=== PATIENT | male | born 1945 | race Caucasian/White ===

== ENCOUNTER 2018-06-25 20:01 | Observation (INO) | payer MEDICARE ==
[~2018-06-25] VITALS: Ht 175.3 cm; Wt 83.2 kg
[~2018-06-25 20:01] MED LIST: CYCL10 PO; HYDACE5 PO; Hydrocodone-Ap1 EA23 PO; LOSHYD PO
[2018-06-25] MEDS ORDERED: SYNTHROID112 MCG PO (21:27)
[2018-06-25] MEDS ORDERED: LOSARTAN-HCTZ1 EACH PO (21:27)
[2018-06-25] MEDS ORDERED: ACYC400 PO (21:27)
[2018-06-25] MEDS ORDERED: ATOR10 PO (21:28)
[2018-06-26 01:02] LABS: BASOPHILS ABSOLUTE AUTO 0.05 K/mm3 (0.00-0.23); BASOPHILS PERCENT AUTO 0 % (0-2); EOSINOPHILS ABSOLUTE AUTO 0.08 K/mm3 (0.00-0.68); EOSINOPHILS PERCENT AUTO 1 % (0-6); Hemoglobin 13.1 g/dL (13.5-17.5); IMMATURE GRAN ABSOLUTE AUTO 0.19 K/mm3 (0.00-0.10); IMMATURE GRAN PERCENT AUTO 1 % (0-1); LYMPHOCYTES ABSOLUTE AUTO 1.28 K/mm3 (0.84-5.20); LYMPHOCYTES PERCENT AUTO 7 % (21-46); MONOCYTES ABSOLUTE AUTO 1.05 K/mm3 (0.16-1.47); MONOCYTES PERCENT AUTO 6 % (4-13); Mean Corpuscular HGB 30.5 pg (26.0-34.0); Mean Corpuscular HGB Conc 33.6 g/dL (31.5-36.5); Mean Corpuscular Volume 91 fL (80-100); Mean Platelet Volume 9.6 fL (9.1-12.4); NEUTROPHILS ABSOLUTE AUTO 15.05 K/mm3 (1.96-9.15); NEUTROPHILS PERCENT AUTO 85 % (41-73); Platelet Count 367 K/mm3 (150-400); RDW Coefficient Variation 12.8 % (11.7-14.2); RDW Standard Deviation 42.3 fL (35.1-46.3); Red Blood Cell Count 4.29 M/mm3 (4.30-5.90)
[2018-06-26 01:23] LABS: Alanine Aminotransfer (ALT/SGP 24 U/L (12-78); Albumin, Blood 3.4 g/dL (3.4-5.0); Albumin/Globulin Ratio 0.8 (0.8-1.8); Alk Phos 75 U/L (50-136); Anion Gap 8 mmol/L (6-16); Aspartate Aminotrans (AST/SGOT 18 U/L (12-37); Bilirubin, Total 0.3 mg/dL (0.1-1.0); Blood Urea Nitrogen 29 mg/dL (8-24); Bun/Creatinine Ratio 29.3 (12.0-20.0); CO2, Blood 27 mmol/L (21-32); Calcium, Blood 8.9 mg/dL (8.5-10.1); Chloride, Blood 100 mmol/L (98-108); Creatinine, Blood 0.99 mg/dL (0.60-1.20); Globulin, Blood 4.1 g/dL (2.2-4.0); Glomerular Filtration Rate >60 (60-); Glucose, Blood 167 mg/dL (70-99); Potassium, Blood 3.6 mmol/L (3.5-5.5); Sodium, Blood 135 mmol/L (136-145); Total Protein, Blood 7.5 g/dL (6.4-8.2); Troponin I <0.015 ng/mL (0.000-0.040)
[2018-06-26 05:08] LABS: Adenovirus Not Detected (NOT DETECT); Bordetella pertussis Not Detected (NOT DETECT); Chlamydophila pneumoniae Not Detected (NOT DETECT); Coronavirus 229E Not Detected (NOT DETECT); Coronavirus HKU1 Not Detected (NOT DETECT); Coronavirus NL63 Not Detected (NOT DETECT); Coronavirus OC43 Not Detected (NOT DETECT); Human Metapneumovirus Not Detected (NOT DETECT); Human Rhinovirus/Enterovirus Not Detected (NOT DETECT); Influenza A/2009-H1 Not Detected (NOT DETECT); Influenza A/H1 Not Detected (NOT DETECT); Influenza A/H3 Not Detected (NOT DETECT); Influenza B Not Detected (NOT DETECT); Mycoplasma pneumoniae Not Detected (NOT DETECT); Parainfluenza Virus 1 Not Detected (NOT DETECT); Parainfluenza Virus 2 Not Detected (NOT DETECT); Parainfluenza Virus 3 Not Detected (NOT DETECT); Parainfluenza Virus 4 Not Detected (NOT DETECT); Respiratory Syncytial Virus Not Detected (NOT DETECT)
--- NOTE | 2018-06-26 05:45 | NUR ---
PT NEW ADMIT THIS SHIFT FOR COPD EXACERBATION. PT VSS SINCE ARRIVING TO FLOOR, O2 SATS >90% ON RA. LUNGS COARSE W/EXP WHEEZING IN BASES. PT REP SOB W/EXERTION, REP WOB AT BASELINE WHEN AT REST. PT DOES HAVE PROD COUGH W/YELLOW SPUTUM. PT USING CALL LIGHT FOR ASSISTANCE, WILL CONT TO MONITOR UNTIL REP GIVEN TO ONCOMING RN.
[2018-06-26 06:17] LABS: Influenza A Not Detected (NOT DETECT)
--- NOTE | 2018-06-26 07:24 | NUR ---
pt awake sitting up on edge of the bed stated that he is breathing ok still has productive cough thick yellow ls coarse t/o dim bases pt's to bring in his home meds need dose of meds
--- NOTE | 2018-06-26 08:10 | NUR ---
PT EATING BREAKFAST MEDS GIVEN SCHED RT BY TO SEE PT FOR NEB TX
--- NOTE | 2018-06-26 09:51 | NUR ---
AMB WITH PT IN HALLWAY WITH EXERTION PT WENT TO 94% STARTED AT REST AT 96-97% SITTING UP ON EDGE OF THE BED
--- NOTE | 2018-06-26 12:53 | NUR ---
pt's granddaughter updated on pt's cond pt had cxray family req pt have a ct to check for ca due to smoking history
--- NOTE | 2018-06-26 15:53 | NUR ---
PT HAD NEB TX WANTING TO AMB AGAIN IN THE HALLWAY TOLD PT HE CAN WITHOUT US BIOX ON RA STABLE
--- NOTE | 2018-06-26 17:30 | NUR ---
PT EATING DINNER FAMILY AT BEDSIDE
--- NOTE | 2018-06-26 18:00 | NUR ---
PT REYNA IN HALLWAY WITH HIS FAMILY STATED THAT HE DID NOT GET SHORT OF BREATH WALKED TO THE ELEVATOR AND BACK
--- NOTE | 2018-06-27 05:47 | NUR ---
SUMMARY NO ACUTE CHANGES NOTED FROM ASSESSMENT. PT REMAINS ON ROOM AIR, DENIES SOB. NEW IV STARTED IN RFA. PT INDEPENDENT IN ROOM. CALL LIGHT IN REACH.
--- NOTE | 2018-06-27 09:00 | NUR ---
DR BEEN HERE TO SEE PT.
--- NOTE | 2018-06-27 18:58 | NUR ---
SHIFT SUMMARY PT EATING AND DRINKING WITHOUT DIFF. PT CONT TO DENY SOB. PT UP IND, ENC TO AMBULATE OUT OF ROOM. PT FAMILY IN/OUT OF ROOM TODAY. PT BEEN ASSISTED WITH ADL'S PRN.
--- NOTE | 2018-06-28 05:56 | NUR ---
SUMMARY: NO ACUTE CHANGE THIS SHIFT. PT DENIES SOB, CHEST PAIN. NO DIFFICULTLY BREATHING AND INDEPENDENT IN ROOM. A/O, VSS. ON RA. NO SAFETY CONCERNS AT THIS TIME, PLAN IS TO DC TODAY
--- NOTE | 2018-06-28 07:00 | NUR ---
ASSESSMENT: PT SLEEPING AT THIS TIME. NO S/S DISTRESS OR PAIN. RESP E/U. CALL LIGHT IN REACH. WILL ALLOW REST AND DO FULL ASSESSMENT WHEN PT IS AWAKE.
[2018-06-28] MEDS ORDERED: DULERA 100 MCG/13 GM INH (10:40)
[2018-06-28] MEDS ORDERED: PRED20 PO (10:41)
--- NOTE | 2018-06-28 11:33 | NUR ---
DISCHARGE: PT DC TO HOME AT THIS TIME WITH SPOUSE. VERBAL UNDERSTANDING OD INSTRUCTIONS, MEDICATIONS, FOLLOW UP AND PROBLEMS TO REPORT. IV DC'D WNL. FOLLOW UP APPOINTMENT SCHEDULED WITH DR GOODEN. PT LEFT AMBULATORY TO CAR WITH BELONGINGS.
== END 2018-06-28 11:35 | disposition home or self-care (01) ==
LOC: ER 20:01 → MEDS 20:02 → SURS 06-26 00:45
PROVIDERS: ADMIT Internal Medicine
DX: J96.01 Acute respiratory failure with hypoxia (principal); J44.1 Chronic obstructive pulmonary disease with (acute) exacerbation; I10 Essential (primary) hypertension; E03.9 Hypothyroidism, unspecified; R93.89 Abnormal findings on diagnostic imaging of other specified body structures; Z87.891 Personal history of nicotine dependence; Z79.899 Other long term (current) drug therapy
CPT/HCPCS: 36415; 71045; 71046; 80053; 84484; 85025; 87486; 87581; 87633; 87798; 93005; 93010; 94640; 94644; 94760; 96365; 96366; 99285-25; G0378; J1956

== ENCOUNTER 2020-09-15 07:40 | Day surgery (SDC) | payer MEDICARE ==
[~2020-09-15] VITALS: Ht 180.3 cm; Wt 84.0 kg
[~2020-09-15 07:40] MED LIST changes: +ACYC400 PO; +ATOR10 PO; +ATOR40TA PO; +Aspir 8181 MG PO; +CILO100 PO; +DULERA 100 MCG/13 GM INH; +LOSARTAN-HCTZ1 EACH PO; +PRED20 PO; +SYNTHROID112 MCG PO
[2020-09-15] MEDS ORDERED: HYDCHL12.5 PO (08:14)
[2020-09-15] MEDS ORDERED: LOSA50 PO (08:14)
--- NOTE | 2020-09-15 11:25 | NUR ---
PT HOB RAISED TO 45 DEGREES, RIGHT GROIN SITE SOFT NON TENDER, DRESSING CLEAN AND INTACT. NO BLEEDING OR OOZING NOTED. DENIES PAIN. VSS. CALL LIGHT IN REACH. TOLERATES PO FLUIDS. WILL CONTINUE TO MONITOR.
--- NOTE | 2020-09-15 12:00 | NUR ---
PT OUT OF BED, AMBULATES WITH SLOW STEADY GAIT, RIGHT GROIN SITE SOFT NON TENDER WITH NO ACTIVE BLEEDING NOTED. PREVIOUS SWELLING NOTED POST MYNX DEVICE, SOFT NOW. DRESSING C/D/I. WILL CONTINUE TO MONITOR.
--- NOTE | 2020-09-15 13:01 | NUR ---
PT VERBALIZED UNDERSTANDING OF D/C INSTRUCTIONS. PAPERWORK PROVIDED IN FOLDER. PT GETS DRESSED WITH NO ASSISTANCE, CALLED TO SET UP TRANSPORTATION HOME. IV REMOVED FROM LAC WITH CATH INTACT, PRESSURE DRESSING APPLIED. TAKEN TO PRIVATE VEHICLE VIA W/C. NADN AT TIME OF DISCHARGE. ENCOURAGED TO FOLLOW UP SCHEDULED WITH PROVIDER.
== END 2020-09-15 14:00 | disposition home or self-care (01) ==
LOC: MHTC 07:40
DX: I70.212 Atherosclerosis of native arteries of extremities with intermittent claudication, left leg (principal)
CPT/HCPCS: 75625; 75716; 75774; 85347; 99152; 99153; C1725; C1757; C1769; C1887; C1894; C2623; C9764; J2250; J3010; J7030; Q9967

== ENCOUNTER → 2022-07-26 | Outpatient (CLI) | payer MEDICARE ==
[~2022-07-26] MED LIST changes: +HYDCHL12.5 PO; +LOSA50 PO
== END ==
LOC: LAB SHORT 11:04 → PLD 11:04
DX: L82.1 Other seborrheic keratosis (principal)
CPT/HCPCS: 88305